=== PATIENT | female | born 1980 | race Caucasian/White ===

== ENCOUNTER 2023-02-08 12:52 | Outpatient (CLI) | payer BC | END 2023-02-08 12:53 | disposition home or self-care (01) | LOC: CSHULT 12:52 | PROVIDERS: ATTEND Internal Medicine Critical Care Medicine | DX: R06.02 Shortness of breath (principal); R06.00 Dyspnea, unspecified; I51.9 Heart disease, unspecified | CPT/HCPCS: 71046; 93306; 94010; 94726; 94729; 94760 ==